=== PATIENT | female | born 1965 | race African-American/Black ===

== ENCOUNTER → 2017-03-28 | Outpatient (CLI) | payer OTHER ==
[~2017-03-28] MED LIST: ALBUTEROL17 G1; ALBUTEROL17 GM INH; AMITRYPTYLINE PO; ASPIRINEC PO; BACTRIM DS TABL1 TAB PO; CIPRO PO; DEPAKOTE PO; DETROL LA PO; DETROL PO; DITROPAN PO; FLEXERIL PO; FLEXERIL10 M1 PO; FLOMAX0.4 M1 PO; FLOMAX0.4 MG PO; HYDROCODON-ACE1 EAC7 PO; KEFLEX500 MG PO; KETOPROFEN PO; LIPITOR20 MG PO; LISINOPRIL20 MG PO; LITHIUM PO; LORTAB 10-5001 EACH PO; LORTAB 7.5-5001 TAB PO; MEDROL4 MG/DOSE- PO; NEURONTIN100 MG PO; NORCO 5/325 TAB1 TAB PO; OXYCODON HCL-1 UDTA1 PO; PEGASUS IM; PERCOCET PO; PERCOCET5/325 PO; PHENERGAN PO; PHENERGAN PR; PHENERGAN25 MG PO; PREMARIN PO; PRILOSEC20 MG DOB; PROZAC PO; PYRIDIUM PO; REBETOL200 MG PO; REMERON PO; SEROQUEL PO; TRAZODONE PO; TYLENOL #3 PO; TYLOX 5/500 CAP1 CAP PO; VALPROIC A250 MG/51 PO; VICODIN 5/1 TAB 5/50 PO; VICODIN 5/500 T1 TAB PO; VICODIN PO; ZOFRAN ODT4 MG PO
--- NOTE | ~2017-03-28 | MR113 ---
[facility] A Service of [facility] & [facility] RADIOLOGY TEXT RESULTS PATIENT: JASMIN GOMEZ LOCATION: [facility] : 65 UNIT #: [id number] AGE: [address]: Mohan Shabazz MD SEX: F ORDER DR: [id number] [place] [id number] O MR#: [id number] Acc #: [id number] NAME: JASMIN GOMEZ : 1965 SEX: F STUDY DATE/TIME: 03/28/2017 11:35 UNIT: [facility] ROOM: STUDY DESCRIPTION: MR Lumbar Wo Contrast Attending Physician: Mohan Shabazz M.D. Referring Physician: Mohan Shabazz M.D. Ordering Physician: Mohan Shabazz M.D. Primary Care Physician: Mohan Shabazz M.D. MRI CENTER REPORT This report is preliminary unless electronic signature is present. EXAM Lumbar spine MRI, no contrast, 03/28/17 PROCEDURE: Routine unenhanced lumbar spine MRI. COMPARISON: CT abdomen and pelvis 09/05/2012 HISTORY Worsening chronic low back pain for about four years, favoring right side radiating to right hip and groin. FINDINGS Alignment is normal. There is some mild degenerative marrow signal changes but no evidence to suggest marrow infiltration or replacement. The distal cord and conus are normal in position and appearance. The paraspinous tissues are normal. At L1-2, there is no canal or foraminal stenosis. At L2-3, there is a slight disc bulge and facet arthropathy but no canal stenosis but mild right and borderline left foraminal stenosis. At 3-4, again there is a slight disc bulge but no canal stenosis but mild or even [id number]-[id number]-hroqaniz right and left foraminal stenosis. At 4-5, there is disc and endplate change and facet arthropathy. There is no canal stenosis but there is mild right and moderate left foraminal stenosis. At 5-1, there is no canal stenosis or foraminal stenosis. IMPRESSION [facility] A Service of [facility] & [facility] RADIOLOGY TEXT RESULTS PATIENT: JASMIN GOMEZ LOCATION: [facility] : 65 UNIT #: [id number] AGE: [address]: Mohan Shabazz MD SEX: F ORDER DR: Discogenic and facet degenerative changes. Areas of foraminal narrowing without substantial canal stenosis at any level. No acute appearing abnormality at any level. Dictated by... Malik Whiteside M.D. THIS IS AN ELECTRONICALLY VERIFIED REPORT Malik Whiteside M.D. at 04/04/2017 5:37 PM ROOPA/hermes TD: 03/31/2017 13:10 JOB #: [id number] MRI CENTER REPORT Page 1 of 1
--- NOTE | ~2017-03-28 | MY11 ---
[facility] A Service of [facility] RADIOLOGY TEXT RESULTS PATIENT: JASMIN GOMEZ LOCATION: [facility] : 65 UNIT #: [id number] AGE: [address]: Mohan Shabazz MD SEX: F ORDER DR: [id number] [address] [id number] O MR#: [id number] Acc #: [id number] NAME: JASMIN GOMEZ : 1965 SEX: F STUDY DATE/TIME: 03/28/2017 11:39 UNIT: [facility] ROOM: STUDY DESCRIPTION: MY Mammogram Screening Dig Brayan Attending Physician: Mohan Shabazz M.D. Referring Physician: Mohan Shabazz M.D. Ordering Physician: Mohan Shabazz M.D. Primary Care Physician: Mohan Shabazz M.D. MEDICAL IMAGING REPORT This report is preliminary unless electronic signature is present. EXAM Digital screening mammogram, 03/28/2017, [facility]. HISTORY 52-year-old woman. Positive family history, paternal great-great aunt, niece age 36. Annual screen. COMPARISON Outside mammogram, date 04/22/2012, [facility]. FINDINGS Digital imaging of each breast was completed utilizing a two-view examination of each breast in craniocaudal and mediolateral-oblique projections. Review and interpretation of digital mammograms include a second review in conjunction with FDA-approved CAD device. There is a normal parenchymal presentation bilaterally consistent with the patient's age. There are no breast masses imaged and no parenchymal asymmetry is visualized. There are no suspicious microcalcifications and I see no focal architectural disturbance. IMPRESSION Negative screening digital mammogram. One-year followup recommended. Patients over the age of 40 are entered into a reminder system with target due date for the next mammogram. A result letter will also be sent to the patient. BIRADS: 1 Negative ADDENDUM Breast parenchyma is fatty replaced. [facility] A Service [facility] RADIOLOGY TEXT RESULTS PATIENT: JASMIN GOMEZ LOCATION: [facility] : 65 UNIT #: [id number] AGE: [address]: Mohan Shabazz MD SEX: F ORDER DR: Dictated by... Jimmy Freeman M.D. THIS IS AN ELECTRONICALLY VERIFIED REPORT Jimmy Freeman M.D. at 04/02/2017 1:03 PM DELFINA/juju TD: 04/02/2017 12:23 JOB #: [id number] MEDICAL IMAGING REPORT Page 1 of 1
== END | disposition home or self-care (01) ==
LOC: SMAM 10:46
DX: Z12.31 Encounter for screening mammogram for malignant neoplasm of breast (principal); M47.26 Other spondylosis with radiculopathy, lumbar region; Z80.3 Family history of malignant neoplasm of breast
CPT/HCPCS: 72148; G0202